=== PATIENT | female | born 1960 | race Caucasian/White ===

== ENCOUNTER → 2018-04-24 | Outpatient (CLI) | payer BC ==
--- NOTE | 2018-04-26 08:47 | MM ---
Reason for exam: screening (asymptomatic). History: Patient is postmenopausal and is nulliparous. Physical Findings: A clinical breast exam by your physician is recommended on an annual basis and results should be correlated with mammographic findings. MG 3D Screening Mammo W/Cad Bilateral CC and MLO view(s) were taken. The breast tissue is heterogeneously dense. This may lower the sensitivity of mammography. Focal asymmetry left CC, not suspicious on MLO. Short term follow up. ASSESSMENT: Probably benign, BI-RAD 3 RECOMMENDATION: Follow-up diagnostic mammogram of the left breast in 6 months.
== END | disposition home or self-care (01) ==
LOC: RADMAMWWP 11:05
PROVIDERS: ATTEND Family Medicine
DX: Z12.31 Encounter for screening mammogram for malignant neoplasm of breast (principal)
CPT/HCPCS: 77063; 77067

== ENCOUNTER 2024-07-06 14:21 | Emergency (ER) | payer OTHER ==
[2024-07-06] MEDS ORDERED: ACETAMINOPHEN TAB 500 MG TAB ONE (15:05)
--- NOTE | 2024-08-05 15:13 | CT ---
ALEJA LIRA : 1960 EXAM: CT brain without contrast. CT cervical spine without contrast. CT facial structures without contrast. DATE: 07/06/2024 16:18 INDICATION: Reason for study: Pain COMPARISON: None, please note PACS downtime occurred during the radiologist interpretation of these i mages with limited priors/reports.. TECHNIQUE: Multiple axial CT images of the brain were obtained without IV contrast. Axial CT images from the skull base to the inferior aspect of T2 we obtained without intravenous cont rast. Coronal and sagittal reformatted images were also reviewed. Multiple unenhanced axial CT images were obtained of the facial bones soft tissue and bone windows. Coronal, axial and sagittal reformatted images were also provided in soft tissue and bone windows and submitted for interpretation. Additional 3-D reformatted images were obtained on a separate worksta tion. One or more CT dose reduction strategies were utilized during this examination. Total DLP administered was 982 mGycm . FINDINGS: CT BRAIN: Extra-axial spaces: No abnormal extra-axial fluid collections. Ventricular system: Within normal limits Cerebral parenchyma: No acute intraparenchymal hemorrhage or mass effect. The marroquin-white junction is well differentiated. Cerebellum: Unremarkable. Mass effect: No evidence of midline shift. Intracranial vasculature: unremarkable Calvarium/osseous structures: No depressed skull fracture. Paranasal sinuses and mastoid air cells: Scattered mild mucosal thickening. Visualized orbits: Orbital contents are intact. CT CERVICAL SPINE: Fracture: None. Osseous structures: Multilevel degenerative disc disease changes with endplate spurring and disc oste ophyte complex's. Vertebral alignment: Within normal limits. Spinal canal/Neural Foramina: No evidence of significant spinal canal narrowing. No evidence of signi ficant neural foramina narrowing. Neck soft tissues: Prevertebral soft tissues are within normal limits. Other: The airway is patent. The lung apices are clear. CT facial: Left periorbital edema. The globe is intact. Left cheek edema. There is no evidence of fracture, subluxation, or dislocation. The orbital contents are unremarkable. The temporal-mandibular joints appear symmetric. The paranasal sinuses demonstrate mild mucosal thic kening. IMPRESSION: 1. No acute intracranial process. 2. No evidence of cervical spine fracture. 3. Mild multilevel degenerative disc disease. 4. Left periorbital and left cheek edema no evidence for facial fracture.
== END 2024-07-06 17:32 | disposition home or self-care (01) ==
LOC: EC 14:21
CPT/HCPCS: 70450; 70486; 72125; 99284

== ENCOUNTER 2025-03-27 12:35 | Observation (INO) | payer OTHER ==
[2025-03-27] MEDS: SODIUM CHLORIDE 0.9% 1,000 ML IV STA (13:01)
[2025-03-27] MEDS: ONDANSETRON 4 MG/2 ML VIAL IVP STA (13:02)
[2025-03-27] MEDS: NITROGLYCERIN SL TABS 0.4 MG TAB SUBLINGUAL STA (13:03)
[2025-03-27] MEDS: ASPIRIN 81 MG PO STA (13:03)
--- NOTE | 2025-03-27 13:06 | ED ---
General Adult HPI - General Chief complaint: Chest Pain Stated complaint: chest pain Time Seen by Provider: 03/27/25 12:40 Source: patient, RN notes reviewed, old records reviewed Mode of arrival: ambulatory Limitations: no limitations - History of Present Illness Initial comments: Patient is a 64-year-old female presents emergency department complaining of chest pain. Describes it as a chest pressure sensation over the center of her chest. Worse with exertion. Has been present for the last 2 days. Worse with exertion. As above stated above, describes it as a pressure sensation. States it is currently a 5 out of 10. At its worst it is a 6 out of 10. No diaphoretic episodes with it. No radiation of the pressure. No known palli ative factors other than mild rest. Endorses some mild shortness of breath with it as well. Endorses morning nausea over the last few mornings as well. Denies any fevers, chills. Denies any cough or diarrhea. Denies any history of cardiac disease. Does have a history of asthma and states this does not feel like her asthma. Denies any urinary symptoms. Presents for further evaluation at this time. - Related Data Home Medications Medication Instructions Recorded Confirmed Albuterol Sulfate [Albuterol 1 puff PO RT-Q6H PRN 03/27/25 03/27/25 Sulfate Hfa] Allergy Otc 1 tab PO DAILY 03/27/25 03/27/25 Antacid Otc 1 tab PO DAILY 03/27/25 03/27/25 Citalopram Hydrobromide [CeleXA] 40 mg PO DAILY 03/27/25 03/27/25 Ibuprofen [Motrin Ib] 200 mg PO Q6H PRN 03/27/25 03/27/25 Allergies Allergy/AdvReac Type Severity Reaction Status Date / Time Penicillins Allergy Itching Verified 03/27/25 13:47 Review of Systems ROS Statement: Those systems with pertinent positive or pertinent negative responses have been documented in the HPI. Review of Systems: CONST: Denies fever EYES: Denies blurry vision ENT: Denies nasal congestion C/V: Endorses chest pain RESP: Denies shortness of breath GI: Denies abdominal pain : Denies dysuria SKIN: Denies rash. MSK: Denies joint pain. NEURO: Denies headache ROS Other: All systems not noted in ROS Statement are negative. Past Medical History Past Medical History: Asthma History of Any Multi-Drug Resistant Organisms: None Reported Additional Past Surgical History / Comment(s): ovary removed Past Psychological History: Depression Smoking Status: Never smoker Past Alcohol Use History: Occasional Past Drug Use History: None Reported General Exam - General Exam Comments Initial Comments: General: Appears in no acute distress. HEAD: Normal with no signs of head trauma. EYES: EOMI ENT: Hearing grossly intact RESPIRATORY: Clear breath sounds bilaterally. No wheezes, rales, or rhonchi. No hypoxia. C/V: Regular rate and rhythm. S1 and S2 auscultated, no edema, peripheral pulses 2+ and intact throughout. Chest pain is not reproducible on palpation. ABD: Abd is soft, nontender, nondistended EXT: No obvious deformity SKIN: No rashes or lesions observed on exposed skin. NEURO: Alert and oriented x 4. Limitations: no limitations Course Vital Signs 03/27/25 03/27/25 03/27/25 12:36 13:44 16:26 Temperature 98 F Pulse Rate 94 90 81 Respiratory 22 18 16 Rate Blood Pressure 171/98 153/85 142/80 O2 Sat by Pulse 99 98 98 Oximetry 03/27/25 03/27/25 18:03 18:19 Temperature 97.9 F Pulse Rate 82 Respiratory 16 Rate Blood Pressure 149/83 O2 Sat by Pulse 98 Oximetry Medical Decision Making - Medical Decision Making Was pt. sent in by a medical professional or institution (Dr. PA, MOTTLER OPERATOR, urgent care, hospital, or [place] [facility] care facility...) When possible be specific @ -No Did you speak to anyone other than the patient for history (EMS, parent, family, police, friend...)? What history was obtained from this source @ -No Did you review nursing and triage notes (agree or disagree)? Why? @ -I reviewed and agree with nursing and triage notes Were old charts reviewed (outside hosp., previous admission, EMS record, old EKG, old radiological studies, urgent care reports/EKG's, [place] health care facility records)? Report findings @ -No prior EKG for comparison in our system Differential Diagnosis (chest pain, altered mental status, abdominal pain women, abdominal pain men, vaginal bleeding, weakness, fever, dyspnea, syncope, headache, dizziness, GI bleed, back pain, seizure, CVA, palpatations, mental health, musculoskeletal)? @ -Differential Chest Pain: Stable Angina, Unstable Angina, STEMI, NSTEMI Aortic Dissection, Pneumothorax, Musculoskeletal, Esophageal Spasm GERD, Cholecystitis, Pancreatitis, Zoster, this is not meant to be an all-inclusive list. EKG interpreted by me (3pts min.). @ -As above X-rays interpreted by me (1pt min.). @ -Chest x-ray reveals no obvious acute cardiopulmonary process. CT interpreted by me (1pt min.). @ -None done U/S interpreted by me (1pt. min.). @ -None done What testing was considered but not performed or refused? (CT, X-rays, U/S, labs)? Why? @ -None What meds were considered but not given or refused? Why? @ -None Did you discuss the management of the patient with other professionals (professionals i.e. , PA, MOTTLER OPERATOR, lab, RT, psych nurse, social contact worker, hired worker, teacher, toxics program officer, nurse outreach case manager)? Give summary @ -I discussed the patient with the admitting provider, Dr. Chamberlain who accepted the admission. Was smoking cessation discussed for >3mins.? @ -No Was critical care preformed (if so, how long)? @ -No Were there social determinants of health that impacted care today? How? (Homelessness, low income, unemployed, alcoholism, drug addiction, transportation, low edu. Level, literacy, decrease access to med. care, fdc, rehab)? @ -No Was there de-escalation of care discussed even if they declined (Discuss DNR or withdrawal of care, Hospice)? DNR status @ -No What co-morbidities impacted this encounter? (DM, HTN, Smoking, COPD, CAD, Ca ncer, CVA, ARF, Chemo, Hep., AIDS, mental health diagnosis, sleep apnea, morbid obesity)? @ -None Was patient admitted / discharged? Hospital course, mention meds given and route, prescriptions, significant lab abnormalities, going to OR and other pertinent info. @ -Patient presents with exertional chest pressure. We will obtain cardiopulmonary workup. It has been ongoing for the last 2 or 3 days. Vitals are currently within acceptable limits except for mild hypertension. Patient will be administered 3 to 24 mg of aspirin, nitroglycerin tablet, IV fluids and Zofran. She was in agreement this plan. EKG shows no signs of acute ischemia but frequent PVCs are present. No prior EKG for comparison.Repeat EKG shows no significant acute change. Less PVCs. Chest x-ray reveals no evidence of acute cardiopulmonary process. Laboratory studies remarkable for undetectable troponin. D-dimer is within normal limits. Remainder the workup unremarkable. On reevaluation, nitroglycerin did resolve the patient's pain. Patient's heart score is 3-4 in the presence of exertional chest pain. I did recommend admission for the patient which she was in agreement the plan. Will trend the troponin. Echo ordered. Cardiology consulted. She was in agreement this plan. I discussed the patient with the admitting provider, Dr. Chamberlain who accepted the admission. Undiagnosed new problem with uncertain prognosis? @ -No Drug Therapy requiring intensive monitoring for toxicity (Heparin, Nitro, I nsulin, Cardizem)? @ -No Were any procedures done? @ -No Diagnosis/symptom? @ -Chest pain Acute, or Chronic, or Acute on Chronic? @ -Acute Uncomplicated (without systemic symptoms) or Complicated (systemic symptoms)? @ -Complicated Side effects of treatment? @ -None Exacerbation, Progression, or Severe Exacerbation] @ -No Poses a threat to life or bodily function? @ -Potentially, yes - Lab Data Result diagrams: 03/27/25 13:05 03/27/25 13:05 Lab Results 03/27/25 03/27/25 03/27/25 Range/Units 13:05 13:05 13:05 WBC 5.95 (4.50-10.00) 10*3/uL RBC 4.57 (4.10-5.20) 10*6/uL Hgb 15.0 (12.0-15.0) g/dL Hct 42.5 (37.2-46.3) % MCV 93.0 (80.0-97.0) fL MCH 32.8 H (27.0-32.0) pg MCHC 35.3 (32.0-37.0) g/dL Plt Count 294 (140-440) 10*3/uL MPV 8.6 L (9.5-12.2) fL Immature Gran % (Auto) 0.2 % Neutrophils % 56.1 % Lymphocytes % 31.1 % Monocytes % 6.9 % Eosinophils % 4.7 % Basophils % 1.0 % Immature Gran # 0.01 (0.00-0.04) 10*3/uL Neutrophils # 3.34 (1.80-7.70) 10*3/uL Lymphocytes # 1.85 (0.90-5.00) 10*3/uL Monocytes # 0.41 (0.20-1.00) 10*3/uL Eosinophils # 0.28 (0.04-0.35) 10*3/uL Basophils # 0.06 (0.00-0.10) 10*3/uL PT 11.5 (10.0-12.5) sec INR 1.1 (<1.2) APTT 22.7 (22.0-30.0) sec D-Dimer 0.21 (<0.60) mg/L FEU Sodium 140 (137-145) mmol/L Potassium 4.3 (3.5-5.1) mmol/L Chloride 108 H (98-107) mmol/L Carbon Dioxide 22 (22-30) mmol/L Anion Gap 10 mmol/L BUN 13 (7-17) mg/dL Creatinine 0.81 (0.52-1.04) mg/dL Est GFR (CKD-EPI)AfAm 89 (>60 ml/min/1.73 sqM) Est GFR (CKD-EPI)NonAf 78 (>60 ml/min/1.73 sqM) Glucose 102 H (74-99) mg/dL Calcium 9.9 (8.4-10.2) mg/dL Magnesium 1.8 (1.6-2.3) mg/dL Total Bilirubin 0.8 (0.2-1.3) mg/dL AST 32 (14-36) U/L ALT 34 (4-34) U/L Alkaline Phosphatase 76 (38-126) U/L Troponin I (0.000-0.034) ng/mL NT-Pro-B Natriuret Pep 153 pg/mL Total Protein 7.2 (6.3-8.2) g/dL Albumin 4.7 (3.5-5.0) g/dL Lipase 98 (23-300) U/L Urine Color Urine Appearance (Clear) Urine pH (5.0-8.0) Ur Specific [place] (1.001-1.035) Urine Protein (Negative) Urine Glucose (UA) (Negative) Urine Ketones (Negative) Urine Blood (Negative) Urine Nitrite (Negative) Urine Bilirubin (Negative) Urine Urobilinogen (<2.0) mg/dL Ur Leukocyte Esterase (Negative) 03/27/25 03/27/25 Range/Units 13:05 13:55 WBC (4.50-10.00) 10*3/uL RBC (4.10-5.20) 10*6/uL Hgb (12.0-15.0) g/dL Hct (37.2-46.3) % MCV (80.0-97.0) fL MCH (27.0-32.0) pg MCHC (32.0-37.0) g/dL Plt Count (140-440) 10*3/uL MPV (9.5-12.2) fL Immature Gran % (Auto) % Neutrophils % % Lymphocytes % % Monocytes % % Eosinophils % % Basophils % % Immature Gran # (0.00-0.04) 10*3/uL Neutrophils # (1.80-7.70) 10*3/uL Lymphocytes # (0.90-5.00) 10*3/uL Monocytes # (0.20-1.00) 10*3/uL Eosinophils # (0.04-0.35) 10*3/uL Basophils # (0.00-0.10) 10*3/uL PT (10.0-12.5) sec INR (<1.2) APTT (22.0-30.0) sec D-Dimer (<0.60) mg/L FEU Sodium (137-145) mmol/L Potassium (3.5-5.1) mmol/L Chloride (98-107) mmol/L Carbon Dioxide (22-30) mmol/L Anion Gap mmol/L BUN (7-17) mg/dL Creatinine (0.52-1.04) mg/dL Est GFR (CKD-EPI)AfAm (>60 ml/min/1.73 sqM) Est GFR (CKD-EPI)NonAf (>60 ml/min/1.73 sqM) Glucose (74-99) mg/dL Calcium (8.4-10.2) mg/dL Magnesium (1.6-2.3) mg/dL Total Bilirubin (0.2-1.3) mg/dL AST (14-36) U/L ALT (4-34) U/L Alkaline Phosphatase (38-126) U/L Troponin I <0.012 (0.000-0.034) ng/mL NT-Pro-B Natriuret Pep pg/mL Total Protein (6.3-8.2) g/dL Albumin (3.5-5.0) g/dL Lipase (23-300) U/L Urine Color Light Yellow Urine Appearance Clear (Clear) Urine pH 6.5 (5.0-8.0) Ur Specific [place] 1.014 (1.001-1.035) Urine Protein Negative (Negative) Urine Glucose (UA) Negative (Negative) Urine Ketones Negative (Negative) Urine Blood Negative (Negative) Urine Nitrite Negative (Negative) Urine Bilirubin Negative (Negative) Urine Urobilinogen <2.0 (<2.0) mg/dL Ur Leukocyte Esterase Negative (Negative) - EKG Data -: EKG Interpreted by Me EKG Comments: 12-lead Electrocardiogram Interpretation Note EKG was reviewed and interpreted by myself. 12-lead ECG performed at 1252 is interpreted by me as revealing sinus rhythm with frequent PVCs at a rate of 90 beats per minute. [place] is normal. NE interval is 164 ms, QRS duration is 100 ms, QTc is 417 ms. There were no ST or T wave abnormalities to suggest myocardial ischemia or injury. R wave progression across the precordium was satisfactory. By my interpretation this EKG is non-diagnostic for acute ischemia. 12-lead Electrocardiogram Interpretation Note EKG was reviewed and interpreted by myself. 12-lead ECG performed at 1332 is interpreted by me as revealing normal sinus rhythm at a rate of 85 beats per minute. Incomplete right bundle branch block. [place] is normal. NE interval is 172 ms, QRS duration is 100 ms, QTc is 426 ms.. There were no ST or T wave abnormalities to suggest myocardial ischemia or injury. R wave progression acro ss the precordium was satisfactory. By my interpretation this EKG is non- diagnostic for acute ischemia. Disposition Clinical Impression: Chest pain Disposition: ADMITTED IP TO THIS HOSP Condition: Stable Time of Disposition: 14:10
--- NOTE | 2025-03-27 13:18 | XR ---
EXAMINATION TYPE: XR chest 2V DATE OF EXAM: 03/27/2025 1:15 PM COMPARISON: None. CLINICAL INDICATION: Female, 64 years old with history of Chest Pain: Shortness of breath TECHNIQUE: XR chest 2V views of the chest are obtained. FINDINGS: Scattered senescent parenchymal changes noted. Hyperinflation compatible with COPD. No evidence for infiltrate. No evidence for atelectasis. Heart size is stable. Mediastinal structures are stable and grossly unremarkable. No evidence for hilar prominence. Degenerative changes dorsal spine. IMPRESSION: 1. No evidence for acute pulmonary disease. [facility], , 03/27/2025 1:16 PM
[2025-03-27 13:20] LABS: Basophils # (A) 0.06 10*3/uL (0.00-0.10); Eosinophils # (A) 0.28 10*3/uL (0.04-0.35); Eosinophils % (A) 4.7 %; HCT 42.5 % (37.2-46.3); Lymphocytes # (A) 1.85 10*3/uL (0.90-5.00); Lymphocytes % (A) 31.1 %; MCH 32.8 pg (27.0-32.0); MCHC 35.3 g/dL (32.0-37.0); Mean Platelet Volume 8.6 fL (9.5-12.2); Monocytes # (A) 0.41 10*3/uL (0.20-1.00); Monocytes % (A) 6.9 %; Neutrophils # (A) 3.34 10*3/uL (1.80-7.70); Neutrophils % (A) 56.1 %; Platelet Count 294 10*3/uL (140-440); RBC 4.57 10*6/uL (4.10-5.20); RDW 11.6 % (11.5-14.5); WBC 5.95 10*3/uL (4.50-10.00)
[2025-03-27 13:28] LABS: ALT 34 U/L (4-34); AST 32 U/L (14-36); African American GFR (CKD) 89 (>60 ml/min/1.73 sqM); Albumin 4.7 g/dL (3.5-5.0); Alkaline Phosphatase 76 U/L (38-126); Anion Gap 10 mmol/L; Blood Urea Nitrogen 13 mg/dL (7-17); Calcium 9.9 mg/dL (8.4-10.2); Carbon Dioxide 22 mmol/L (22-30); Chloride 108 mmol/L (98-107); Glucose 102 mg/dL (74-99); Lipase 98 U/L (23-300); Magnesium 1.8 mg/dL (1.6-2.3); Non-African American GFR(CKD) 78 (>60 ml/min/1.73 sqM); Potassium 4.3 mmol/L (3.5-5.1); Sodium 140 mmol/L (137-145); Total Bilirubin 0.8 mg/dL (0.2-1.3); Total Protein 7.2 g/dL (6.3-8.2)
[2025-03-27 13:36] LABS: NT-Pro-B-Type Natriuretic Pept 153 pg/mL
[2025-03-27 13:41] LABS: INR 1.1 (<1.2); Partial Thromboplastin Time 22.7 sec (22.0-30.0); Prothrombin Time 11.5 sec (10.0-12.5)
[2025-03-27 14:08] LABS: Appearance,Urine Clear (Clear); Bilirubin,Urine Negative (Negative); Blood,Urine Negative (Negative); Color,Urine Light Yellow; Glucose,Urine (UA) Negative (Negative); Ketones,Urine Negative (Negative); Leukocyte Esterase,Urine Negative (Negative); Nitrite,Urine Negative (Negative); PH, Urine 6.5 (5.0-8.0); Protein,Urine Negative (Negative); Specific Gravity,Urine 1.014 (1.001-1.035); Urobilinogen,Urine <2.0 mg/dL (<2.0)
[2025-03-27] MEDS ORDERED: NALOXONE 0.4 MG/ML 1 ML VIAL IV PRN (14:10)
[2025-03-27] MEDS ORDERED: ACETAMINOPHEN TAB 325 MG TAB PO PRN (14:10)
[2025-03-27] MEDS ORDERED: ONDANSETRON 4 MG/2 ML VIAL IVP PRN (14:10)
[2025-03-27] MEDS: SODIUM CHLORIDE 0.9% 1,000 ML IV SCH (14:28)
[2025-03-27] MEDS: NITROGLYCERIN OINT 1 INCH/GM PACKET TOPICAL SCH (14:29)
--- NOTE | 2025-03-27 14:42 | P.HPIM ---
History of Present Illness Patient is a pleasant 64 years old female with no past medical history significant 1 Presents because of chest pain for the last 2 or 3 days in the center of her chest with no radiation about 4-5/10 in severity felt like heaviness in her chest with no known precipitating or relieving factors She felt little bit fatigued and exhausted but no overt dyspnea or coughing. She felt nausea but no other GI symptoms. No abdominal pain no RUQ pain or tenderness. No headache dizziness weakness numbness She denies smoking alcohol or illicit drugs. She is hemodynamically stable afebrile, labs showing unremarkable CBC, BMP, LFT, troponin is negative. D-dimer is negative at 0.21. EKG shows sinus rhythm at [address]-T changes. Chest x-ray: No acute process. Review of Systems Review of systems CONSTITUTIONAL: No fever, no malaise, no fatigue. HEENT: No recent visual problems or hearing problems. Denied any sore throat. CARDIOVASCULAR: No orthopnea, PND, no palpitations, no syncope. PULMONARY: No shortness of breath, no cough, no hemoptysis. GASTROINTESTINAL: No diarrhea, no nausea, no vomiting, no abdominal pain. Normoactive bowel sounds. NEUROLOGICAL: No headaches, no weakness, no numbness. HEMATOLOGICAL: Denies any bleeding or petechiae. GENITOURINARY: Denies any burning micturition, frequency, or urgency. MUSCULOSKELETAL/RHEUMATOLOGICAL: Denies any joint pain, swelling, or any muscle pain. ENDOCRINE: Denies any polyuria or polydipsia. Past Medical History Past Medical History: Asthma History of Any Multi-Drug Resistant Organisms: None Reported Additional Past Surgical History / Comment(s): ovary removed Past Psychological History: Depression Smoking Status: Never smoker Past Alcohol Use History: Occasional Past Drug Use History: None Reported Medications and Allergies Home Medications Medication Instructions Recorded Confirmed Type Albuterol Sulfate [Albuterol 1 puff PO RT-Q6H PRN 03/27/25 03/27/25 History Sulfate Hfa] Allergy Otc 1 tab PO DAILY 03/27/25 03/27/25 History Antacid Otc 1 tab PO DAILY 03/27/25 03/27/25 History Citalopram Hydrobromide [CeleXA] 40 mg PO DAILY 03/27/25 03/27/25 History Ibuprofen [Motrin Ib] 200 mg PO Q6H PRN 03/27/25 03/27/25 History Allergies Allergy/AdvReac Type Severity Reaction Status Date / Time Penicillins Allergy Itching Verified 03/27/25 13:47 Physical Exam Vitals: Vital Signs Temp Pulse Resp BP Pulse Ox 03/27/25 13:44 90 18 153/85 98 03/27/25 12:36 98 F 94 22 171/98 99 Intake and Output 03/26/25 03/27/25 03/27/25 22:59 06:59 14:59 Other: Weight 64.864 kg GENERAL: The patient is alert and oriented x3, not in any acute distress. Well developed, well nourished. HEENT: Pupils are round and equally reacting to light. EOMI. No scleral icterus. No conjunctival pallor. Normocephalic, atraumatic. No pharyngeal erythema. No thyromegaly. CARDIOVASCULAR: S1 and S2 present. No murmurs, rubs, or gallops. PULMONARY: Chest is clear to auscultation, no wheezing , no crackles. ABDOMEN: Soft, nontender, nondistended, normoactive bowel sounds. No palpable organomegaly. MUSCULOSKELETAL: No joint swelling or deformity. EXTREMITIES: No cyanosis, clubbing, or pedal edema. NEUROLOGICAL: Gross neurological examination did not reveal any focal deficits. SKIN: No rashes. no petechiae. Results CBC & Chem 7: 03/27/25 13:05 03/27/25 13:05 Labs: Abnormal Lab Results - Last 24 Hours (Table) 03/27/25 03/27/25 Range/Units 13:05 13:05 MCH 32.8 H (27.0-32.0) pg MPV 8.6 L (9.5-12.2) fL Chloride 108 H (98-107) mmol/L Glucose 102 H (74-99) mg/dL Assessment and Plan Assessment: Chest pain, rule out cardiac causes. D-dimer negative. Depression History of asthma not active issue Plan: Serial troponin Continue aspirin Cardiology consult GI DVT prophylaxis Prognosis is guarded
[2025-03-28] MEDS ORDERED: MELATONIN 5 MG TABLET PO PRN (01:24)
[2025-03-28] MEDS: LOSARTAN 50 MG TAB PO SCH (08:29)
[2025-03-28] MEDS: ENOXAPARIN 40 MG/0.4 ML SYRINGE SQ SCH (08:34)
[2025-03-28] MEDS ORDERED: ALPRAZolam 0.25 MG TAB PO PRN (08:37)
[2025-03-28] MEDS ORDERED: NITROGLYCERIN SL TABS 0.4 MG TAB SUBLINGUAL PRN (08:37)
[2025-03-28] MEDS: ASPIRIN 325 MG TAB PO STA (08:59)
[2025-03-28] MEDS: ATORVASTATIN 80 MG TAB PO STA (08:59)
--- NOTE | 2025-03-28 09:17 | P.CRDCN ---
History of Present Illness Consult date: 03/28/25 Consult reason: chest pain History of present illness: This is a 64-year-old female with no previous cardiac history and does not follow with a tenant selector. She has a past medical history of anxiety. Patient states that she felt like she had a truck tire on her chest with a heavy weight in the center of her chest and she could not catch her breath and felt exhausted. She states she has had increased anxiety. Symptoms have been ongoing for the past 2 to 3 days. She normally would cut her grass and do yard work but did not feel up to it yesterday. Patient is a non-smoker, no alcohol abuse. Mother had an heart attack at age 60. Patient is noted to have high blood pressure when she came into the hospital and continues now. She states she has had her blood pressure checked at doctors appointments and it has been on the higher side but she has not been on medication for it. She feels like she is back to normal at this time. Dr. Hernandez has reviewed results of testing with the patient and recommendations for either cardiac catheterization or stress testing. Patient has opted to go for cardiac catheterization which will be scheduled for today. Blood pressure 176/94, heart rate 76, pulse ox 97% on room air. -EKG: Sinus rhythm with frequent PVCs, #2 sinus rhythm without PVCs -Chest x-ray: No acute findings. -Laboratory studies: Troponin negative x 3. proBNP 153. CBC, D-dimer, CMP unremarkable. -Home cardiac medications: Review Of Systems: At the time of my exam: CONSTITUTIONAL: Denies fever or chills. HEENT: Denies blurred vision, vision changes, or eye pain. Denies hemoptysis CARDIOVASCULAR: Denies chest pain. Denies orthopnea. Denies PND. Denies palpitations RESPIRATORY: Denies shortness of breath. GASTROINTESTINAL: Denies abdominal pain. Denies nausea or vomiting. HEMATOLOGIC: Denies bleeding disorders. GENITOURINARY: Denies any blood in urine. SKIN: Denies puritis. Denies rash. Physical examination: Gen: This is 64-year-old female in no acute distress VS: reviewed HEENT: Head is atraumatic, normocephalic. Pupils equal, round. Sclerae is anicteric. NECK: Supple. No JVD. LUNGS: Clear to auscultation. No wheezes or rhonchi. No intercostal retractions. HEART: Regular rate and rhythm. No murmur. ABDOMEN: Soft No tenderness. EXTREMITIES: No pedal edema. No calf tenderness. NEUROLOGICAL: Patient is awake, alert and oriented x3. Assessment: Acute coronary syndrome has been ruled out but symptoms concerning for CAD History of anxiety PVCs Hypertension Plan: Start patient on losartan 50 mg daily Discontinue Nitropaste Discontinue Lovenox Schedule patient for cardiac catheterization today with Dr. Hernandez Obtain 2-D echocardiogram and Doppler study to assess cardiac structure and function Further recommendations to follow based upon clinical course Thank you kindly for this consultation. Nurse practitioner note has been reviewed, I agree with documented findings and plan of care. Patient was seen and examined. Past Medical History Past Medical History: Asthma History of Any Multi-Drug Resistant Organisms: None Reported Additional Past Surgical History / Comment(s): ovary removed Past Psychological History: Depression Smoking Status: Never smoker Past Alcohol Use History: Occasional Past Drug Use History: None Reported Medications and Allergies Home Medications Medication Instructions Recorded Confirmed Type Albuterol Sulfate [Albuterol 1 puff PO RT-Q6H PRN 03/27/25 03/27/25 History Sulfate Hfa] Allergy Otc 1 tab PO DAILY 03/27/25 03/27/25 History Antacid Otc 1 tab PO DAILY 03/27/25 03/27/25 History Citalopram Hydrobromide [CeleXA] 40 mg PO DAILY 03/27/25 03/27/25 History Ibuprofen [Motrin Ib] 200 mg PO Q6H PRN 03/27/25 03/27/25 History Allergies Allergy/AdvReac Type Severity Reaction Status Date / Time Penicillins Allergy Itching Verified 03/27/25 13:47 Physical Exam Vitals: Vital Signs Temp Pulse Pulse Resp BP BP BP 03/28/25 07:10 98.4 F 76 16 176/94 03/28/25 00:47 98 F 72 18 157/94 03/27/25 20:00 87 03/27/25 19:45 98.8 F 87 18 150/83 03/27/25 18:19 97.9 F 03/27/25 18:03 82 16 149/83 03/27/25 16:26 81 16 142/80 03/27/25 13:44 90 18 153/85 03/27/25 12:36 98 F 94 22 171/98 Pulse Ox 03/28/25 07:10 97 03/28/25 00:47 94 L 03/27/25 20:00 03/27/25 19:45 96 03/27/25 18:19 03/27/25 18:03 98 03/27/25 16:26 98 03/27/25 13:44 98 03/27/25 12:36 99 Intake and Output 03/27/25 03/28/25 03/28/25 22:59 06:59 14:59 Other: # Voids 1 2 Weight 64.864 kg Results 03/27/25 13:05 03/27/25 13:05 Cardiac Enzymes 03/27/25 03/27/25 03/27/25 Range/Units 13:05 13:05 15:48 AST 32 (14-36) U/L Troponin I <0.012 <0.012 (0.000-0.034) ng/mL 03/27/25 Range/Units 19:53 AST (14-36) U/L Troponin I <0.012 (0.000-0.034) ng/mL Coagulation 03/27/25 Range/Units 13:05 PT 11.5 (10.0-12.5) sec APTT 22.7 (22.0-30.0) sec CBC 03/27/25 Range/Units 13:05 WBC 5.95 (4.50-10.00) 10*3/uL RBC 4.57 (4.10-5.20) 10*6/uL Hgb 15.0 (12.0-15.0) g/dL Hct 42.5 (37.2-46.3) % Plt Count 294 (140-440) 10*3/uL Comprehensive Metabolic Panel 03/27/25 Range/Units 13:05 Sodium 140 (137-145) mmol/L Potassium 4.3 (3.5-5.1) mmol/L Chloride 108 H (98-107) mmol/L Carbon Dioxide 22 (22-30) mmol/L BUN 13 (7-17) mg/dL Creatinine 0.81 (0.52-1.04) mg/dL Glucose 102 H (74-99) mg/dL Calcium 9.9 (8.4-10.2) mg/dL AST 32 (14-36) U/L ALT 34 (4-34) U/L Alkaline Phosphatase 76 (38-126) U/L Total Protein 7.2 (6.3-8.2) g/dL Albumin 4.7 (3.5-5.0) g/dL Current Medications Generic Name Dose Route Start Last Admin Trade Name Freq PRN Reason Stop Dose Admin Acetaminophen 650 mg 03/27/25 14:10 Acetaminophen Tab 325 Mg Tab PO Q6HR PRN Mild Pain or Fever > 100.5 Enoxaparin Sodium 40 mg 03/28/25 09:00 Enoxaparin 40 Mg/0.4 Ml Syringe SQ DAILY KAMERON Sodium Chloride 1,000 mls @ 75 mls/hr 03/27/25 14:15 03/27/25 14:28 Saline 0.9% IV 75 mls/hr .[id number] KAMERON Administration Melatonin 5 mg 03/28/25 01:24 Melatonin 5 Mg Tablet PO HS PRN Insomnia Naloxone HCl 0.2 mg 03/27/25 14:10 Naloxone 0.4 Mg/Ml 1 Ml Vial IV Q2M PRN Opioid Reversal Nitroglycerin 0.5 inch 03/27/25 14:15 03/27/25 23:13 Nitroglycerin Oint 1 Inch/Gm Packet TOPICAL Not Given Q8HR KAMERON Ondansetron HCl 4 mg 03/27/25 14:10 Ondansetron 4 Mg/2 Ml Vial IVP Q8HR PRN Nausea And Vomiting Intake and Output 03/27/25 03/28/25 03/28/25 22:59 06:59 14:59 Other: # Voids 1 2 Weight 64.864 kg 03/27/25 13:05 03/27/25 13:05
[2025-03-28 10:05] LABS: Basophils # (A) 0.06 X 10*3/uL (0.00-0.10); Basophils % (A) 1.2 %; Eosinophils # (A) 0.25 X 10*3/uL (0.04-0.35); Eosinophils % (A) 4.8 %; HCT 39.6 % (37.2-46.3); HGB 13.5 g/dL (12.0-15.0); Lymphocytes # (A) 2.11 X 10*3/uL (0.90-5.00); Lymphocytes % (A) 40.6 %; MCH 32.8 pg (27.0-32.0); MCHC 34.1 g/dL (32.0-37.0); MCV 96.1 FL (80.0-97.0); Mean Platelet Volume 9.1 FL (9.5-12.2); Monocytes # (A) 0.49 X 10*3/uL (0.20-1.00); Monocytes % (A) 9.4 %; NRBC Per 100 WBC 0 X 10*3/uL (0.00-0.01); Neutrophils # (A) 2.28 X 10*3/uL (1.80-7.70); Neutrophils % (A) 43.8 %; Platelet Count 280 X 10*3/uL (140-440); RBC 4.12 X 10*6/uL (4.10-5.20); RDW 11.8 % (11.5-14.5)
[2025-03-28 10:38] LABS: Glucose,Whole Blood 110 mg/dL (70-110)
[2025-03-28 11:03] LABS: ALT 28 U/L (8-44); AST 24 U/L (13-35); Albumin/Globulin Ratio 2.35 Ratio (1.60-3.17); Alkaline Phosphatase 62 U/L (41-126); BUN/Creat Ratio 13.75 Ratio (12.00-20.00); Calcium 9.1 mg/dL (8.7-10.3); Carbon Dioxide 21.1 mmol/L (21.6-31.8); Chloride 116 mmol/L (96-109); Globulin 1.7 g/dL (1.6-3.3); Glucose 95 mg/dL (70-110); Potassium 4.6 mmol/L (3.5-5.5); Sodium 151 mmol/L (135-145); Total Bilirubin 0.5 mg/dL (0.3-1.2); Total Protein 5.7 g/dL (6.2-8.2)
[2025-03-28] MEDS: HEPARIN SODIUM,PORCINE (1 ML) 2,500 UNIT in SODIUM CHLORIDE 0.9% 250 ML IRRIGATION ONE (11:15)
[2025-03-28] MEDS: IV FLUID CONTINUATION 950 ML IV ONE (11:15)
[2025-03-28] MEDS: HEPARIN SODIUM,PORCINE 10,000 UNIT in SODIUM CHLORIDE 0.9% 1,000 ML IRRIGATION ONE (11:16)
[2025-03-28] MEDS: MIDAZOLAM 2 MG/2 ML VIAL IVP ONE ×2 (11:30→11:36)
[2025-03-28] MEDS: fentaNYL (PF) 50 MCG/ML 2 ML AMP IVP ONE (11:34)
[2025-03-28] MEDS: LIDOCAINE 1% INJ 10MG/ML (20 ML MDV) SQ ONE (11:35)
[2025-03-28] MEDS: VERAPAMIL SYRINGE (5 MG/10 ML) INTRAARTER ONE (11:36)
[2025-03-28] MEDS: IOPAMIDOL-370 100ML BTL INJ ONE (11:45)
[2025-03-28] MEDS ORDERED: RX INFO: IV CONTRAST WAS GIVEN 1 EACH MISC MISCELLANE PRN (12:02)
--- NOTE | 2025-03-28 12:32 | CC ---
CARDIAC CATHETERIZATION REPORT INDICATIONS: Unstable angina. PROCEDURE NOTE: After obtaining informed consent, left heart catheterization and coronary angiogram were performed via the right radial artery using standard Sharita catheters. The patient tolerated the procedure well without any obvious immediate complications. A TR band will be used for hemostasis. The right radial artery access was obtained using Seldinger technique. A 6-Palauan sheath was placed. Catheters and wires were floated into the ascending aorta under fluoroscopic guidance. FINDINGS: 1. Hemodynamics: a. Left ventricular end-diastolic pressure is 8 to 10 mm. b.There is no significant gradient across the aortic valve. 2. Left ventriculogram: Left ventriculogram is not performed. 3. Angiographic data: a.Right coronary artery: Right coronary artery is a large dominant vessel and is free of significant stenosis. b.Left main coronary artery is a normal-sized vessel and is free of disease, it divides into left anterior descending coronary artery and circumflex coronary artery, LAD, and its branches. c.Circumflex coronary artery and its branches are free of significant stenosis. CONCLUSIONS: 1. Normal coronary arteries. 2. Normal left ventricular end-diastolic pressure. 3. The patient's chest pain is probably noncardiac in origin and her management is going to be in the form of risk factor modification and optimal medical therapy. The patient received moderate conscious sedation. Total sedation time was 15 minutes. The patient was given verapamil and heparin per protocol. MMODL / IJN: [id number] /
[2025-03-28 15:40] LABS: Potassium 4.1 mmol/L (3.5-5.1)
[2025-03-28] MEDS: SODIUM CHLORIDE 0.9% 1,000 ML IV SCH (16:07)
[2025-03-28] MEDS: ALPRAZolam 0.5 MG TAB PO PRN (21:32)
--- NOTE | 2025-03-29 00:43 | P.PN ---
Subjective Patient is a pleasant 64 years old female with no past medical history significant 1 Presents because of chest pain for the last 2 or 3 days in the center of her chest with no radiation about 4-5/10 in severity felt like heaviness in her chest with no known precipitating or relieving factors She felt little bit fatigued and exhausted but no overt dyspnea or coughing. She felt nausea but no other GI symptoms. No abdominal pain no RUQ pain or te nderness. No headache dizziness weakness numbness She denies smoking alcohol or illicit drugs. She is hemodynamically stable afebrile, labs showing unremarkable CBC, BMP, LFT, troponin is negative. D-dimer is negative at 0.21. EKG shows sinus rhythm at [address]-T changes. Chest x-ray: No acute process. 03/28 No chest pain Patient is going for cardiac cath today Continue monitoring Objective - Vital Signs Vital signs: Vital Signs Temp 98.3 F 03/28/25 18:57 Pulse 68 03/28/25 18:57 Resp 18 03/28/25 18:57 BP 150/80 03/28/25 18:57 Pulse Ox 98 03/28/25 18:57 FiO2 Intake & Output 03/28/25 03/28/25 03/29/25 06:59 18:59 06:59 Intake Total 252 Balance 252 Weight 64.864 kg Intake: IV 252 Other: Voiding Method Toilet # Voids 2 2 - Exam GENERAL: The patient is alert and oriented x3, not in any acute distress. Well developed, well nourished. HEENT: Pupils are round and equally reacting to light. EOMI. No scleral icterus. No conjunctival pallor. Normocephalic, atraumatic. No pharyngeal erythema. No t hyromegaly. CARDIOVASCULAR: S1 and S2 present. No murmurs, rubs, or gallops. PULMONARY: Chest is clear to auscultation, no wheezing , no crackles. ABDOMEN: Soft, nontender, nondistended, normoactive bowel sounds. No palpable organomegaly. MUSCULOSKELETAL: No joint swelling or deformity. EXTREMITIES: No cyanosis, clubbing, or pedal edema. NEUROLOGICAL: Gross neurological examination did not reveal any focal deficits. SKIN: No rashes. no petechiae. - Labs CBC & Chem 7: 03/28/25 05:46 03/28/25 12:35 Labs: Abnormal Lab Results - Last 24 Hours (Table) 03/28/25 03/28/25 03/28/25 Range/Units 05:46 05:46 12:35 MCH 32.8 H (27.0-32.0) pg MPV 9.1 L (9.5-12.2) FL Sodium 151 H (135-145) mmol/L Chloride 116 H 109 H (96-109) mmol/L Carbon Dioxide 21.1 L 21 L (21.6-31.8) mmol/L Anion Gap 13.90 H (4.00-12.00) mmol/L Total Protein 5.7 L (6.2-8.2) g/dL Assessment and Plan Assessment: Chest pain, rule out cardiac causes. D-dimer negative. Depression History of asthma not active issue Plan: Serial troponin Continue aspirin Cardiology consult GI DVT prophylaxis Prognosis is guarded
[2025-03-29] MEDS ORDERED: HEPARIN SODIUM,PORCINE (1 ML) 2,500 UNIT in SODIUM CHLORIDE 0.9% 250 ML IRRIGATION PRN (07:00)
[2025-03-29] MEDS ORDERED: HEPARIN SODIUM,PORCINE 10,000 UNIT in SODIUM CHLORIDE 0.9% 1,000 ML IRRIGATION PRN (07:00)
[2025-03-29 07:18] VITALS: BP 156/81; PULSE 66; RESP 16; TEMP 97.9
--- NOTE | 2025-03-29 07:47 | CA ---
Transthoracic Echo Report Name: Rachell Rodriguez Age: 64 Gender: F : 1960 Exam Date: 03/28/2025 14:21 Exam Location: [facility] Ht (in): 64 Wt (lb): 143 Ordering Physician: Yonny Cervantes MD Attending/Referring Phys: Workers Compensation Claims Adjuster Molly Villagomez RDCS Procedure CPT: Indications: Chest Pain Cardiac Hx: Technical Quality: Fair Contrast 1: Total Dose (mL): Contrast 2: Total Dose (mL): MEASUREMENTS (Male / Female) Normal Values 2D ECHO LV Diastolic Diameter PLAX 4.4 cm 4.2 - 5.9 / 3.9 - 5.3 cm LV Systolic Diameter PLAX 3.3 cm IVS Diastolic Thickness 1.1 cm 0.6 - 1.0 / 0.6 - 0.9 cm LVPW Diastolic Thickness 1.0 cm 0.6 - 1.0 / 0.6 - 0.9 cm LV Relative Wall Thickness 0.5 RV Internal Dim ED PLAX 2.0 cm LA Systolic Diameter LX 3.7 cm 3.0 - 4.0 / 2.7 - 3.8 cm M-MODE Aortic Root Diameter MM 2.3 cm LA Systolic Diameter MM 3.6 cm LA Ao Ratio MM 1.6 AV Cusp Separation MM 1.6 cm DOPPLER MV Area PHT 2.9 cm??? Mitral E Point Velocity 65.3 cm/s Mitral A Point Velocity 89.0 cm/s Mitral E to A Ratio 0.7 MV Deceleration Time 260.5 ms FINDINGS Left Ventricle Left ventricular ejection fraction is estimated at 55-60%. Mildly increased septal wall thickness. Mildly increased posterior wall thickness. Normal left ventricular systolic function with no obvious regional wall motion abnormalities. Left ventricular cavity size normal. Right Ventricle Normal right ventricular size and function. Right ventricular systolic pressure within normal limits. Right Atrium Normal right atrial size. Left Atrium Normal left atrial size. Mitral Valve Structurally normal mitral valve. No mitral stenosis. Mild mitral regurgitation. Aortic Valve Trileaflet aortic valve. No aortic valve stenosis or regurgitation. Tricuspid Valve Structurally normal tricuspid valve. No tricuspid stenosis. Trace tricuspid regurgitation. Pulmonic Valve Structurally normal pulmonic valve. Trace pulmonic regurgitation. No pulmonic stenosis. Pericardium No pericardial or pleural effusion. Aorta Normal size aortic root and proximal ascending aorta. CONCLUSIONS Normal LV function Mild mitral regurgitation Previewed by: Dr. Erik Hernandez MD (Electronically Signed) Final Date: 29 Mar 2025 07:46
--- NOTE | 2025-03-29 10:46 | P.PN ---
Subjective Progress Note Date: 03/29/25 Consult reason: chest pain History of present illness: This is a 64-year-old female with no previous cardiac history and does not follow with a music therapy specialist. She has a past medical history of anxiety. Patient states that she felt like she had a truck tire on her chest with a heavy weight in the center of her chest and she could not catch her breath and felt exhausted. She states she has had increased anxiety. Symptoms have been ongoing for the past 2 to 3 days. She normally would cut her grass and do yard work but did not feel up to it yesterday. Patient is a non-smoker, no alcohol abuse. Mother had an heart attack at age 60. Patient is noted to have high blood pressure when she came into the hospital and continues now. She states she has had her blood pressure checked at doctors appointments and it has been on the higher side but she has not been on medication for it. She feels like she is back to normal at this time. Dr. Hernandez has reviewed results of testing with the patient and recommendations for either cardiac catheterization or stress testing. Patient has opted to go for cardiac catheterization which will be scheduled for today. Blood pressure 176/94, heart rate 76, pulse ox 97% on room air. -EKG: Sinus rhythm with frequent PVCs, #2 sinus rhythm without PVCs -Chest x-ray: No acute findings. -Laboratory studies: Troponin negative x 3. proBNP 153. CBC, D-dimer, CMP unremarkable. -Home cardiac medications: None 5/4 Patient seen and examined on the observation unit. Yesterday, she underwent cardiac catheterization which found normal coronary arteries. Normal left-sided and diastolic pressure. Chest pain was noncardiac in origin and continue risk factor modification and optimize medical therapy. Echocardiogram reveals normal LV function, mild mitral regurgitation. Blood pressure 156/81, heart rate 66, pulse ox 96% on room air. Physical examination: Gen: This is 64-year-old female in no acute distress VS: reviewed HEENT: Head is atraumatic, normocephalic. Pupils equal, round. Sclerae is anicteric. NECK: Supple. No JVD. LUNGS: Clear to auscultation. No wheezes or rhonchi. No intercostal retra ctions. HEART: Regular rate and rhythm. No murmur. ABDOMEN: Soft No tenderness. EXTREMITIES: No pedal edema. No calf tenderness. NEUROLOGICAL: Patient is awake, alert and oriented x3. Assessment: Acute coronary syndrome has been ruled out History of anxiety PVCs Hypertension Plan: Continue losartan 50 mg daily Patient is cleared for discharge from a cardiology perspective. Patient may follow-up in the office with Dr. Kathi Hernandez in 4 weeks. Nurse practitioner note has been reviewed, I agree with documented findings and plan of care. Patient was seen and examined. Objective - Vital Signs Vital signs: Vital Signs Temp 97.9 F 03/29/25 07:00 Pulse 66 03/29/25 07:00 Resp 16 03/29/25 07:00 BP 156/81 03/29/25 07:00 Pulse Ox 96 03/29/25 07:00 FiO2 Intake & Output 03/28/25 03/29/25 03/29/25 18:59 06:59 18:59 Intake Total 252 Balance 252 Intake: IV 252 Other: Voiding Method Toilet # Voids 2 2 - Labs CBC & Chem 7: 03/28/25 05:46 03/28/25 12:35 Labs: Abnormal Lab Results - Last 24 Hours (Table) 03/28/25 03/28/25 03/28/25 Range/Units 05:46 05:46 12:35 MCH 32.8 H (27.0-32.0) pg MPV 9.1 L (9.5-12.2) FL Sodium 151 H (135-145) mmol/L Chloride 116 H 109 H (96-109) mmol/L Carbon Dioxide 21.1 L 21 L (21.6-31.8) mmol/L Anion Gap 13.90 H (4.00-12.00) mmol/L Total Protein 5.7 L (6.2-8.2) g/dL
[2025-03-29 11:02] LABS: Blood Urea Nitrogen 10.4 mg/dL (9.0-27.0); Calcium 9.5 mg/dL (8.7-10.3); Chloride 107 mmol/L (96-109); Glucose 103 mg/dL (70-110); Potassium 4.6 mmol/L (3.5-5.5); Sodium 142 mmol/L (135-145)
== END 2025-03-29 14:29 | disposition home or self-care (01) ==
LOC: EC 12:35 → 6NMEDSUR 14:10
PROVIDERS: ADMIT Internal Medicine; ATTEND Internal Medicine
DX: I20.0 Unstable angina (principal); J45.909 Unspecified asthma, uncomplicated; F32.A Depression, unspecified; F41.9 Anxiety disorder, unspecified; I49.3 Ventricular premature depolarization; I10 Essential (primary) hypertension; Z79.899 Other long term (current) drug therapy; Z88.0 Allergy status to penicillin; Z82.49 Family history of ischemic heart disease and other diseases of the circulatory system
CPT/HCPCS: 93458 ×2; 96361; 96374; 99285; 36415; 93005; 93306; 85379; 83880; 80051; 80053 ×2; 80048; 83690; 83735; 84484; 85025 ×2; 85610; 85730; 81003; 71046; G0378 ×3; C1894; J2250; J1644 ×3; J2405; J2003; J3010; Q9967